=== PATIENT | female | born 1995 | race Caucasian/White ===

== ENCOUNTER 2017-10-24 16:33 | Emergency (ER) | payer BC, SELFPAY ==
[2017-10-24 16:33] VITALS: BP 143/95; PULSE 108; RESP 16; TEMP 37.4; O2SAT 98; BMI 24.7
--- NOTE | 2017-10-24 17:19 | ED.DCSUM_ITS ---
- ER Visit Summary Date of Service: 10/24/17 Chief Complaint: Left foot burn History of Present Illness: The patient is a 22 F who presents with a burn to the left foot. She spilled hot water on the top of her left foot through her shoe and sustained a burn to the top of the foot. She claims of mild pain only while wearing tennis shoes. She is uncertain of his last tetanus immunization. She presented here for evaluation to make sure it was not infected. She really has no other complaints. Physical Examination: Afebrile vitals are stable There is a partial-thickness burn to the dorsum of the left foot which measures 4 x 2 cm this appears to be a blistered area which had ruptured there is no surrounding erythema consistent with cellulitis there is no lymphangitic streaking there is no surrounding tenderness she is neurovascularly intact distally with brisk capillary refill normal sensation light touch Test Results: Not indicated Emergency Department Course and Treatment: Patient's tetanus was updated and she was instructed on local wound care. She will follow-up as an outpatient as needed. She understands return for new or worsening symptoms. I do not see evidence of infection and do not believe she needs antibiotics. Treatment Plan: [] Disposition: Discharge Impression: Partial-thickness burn of the left foot, less than 1% body surface area This note was generated with [employer] dictation software. It may contain incorrect words, spelling, and punctuation that were not noted in review of the chart prior to signing ED Disposition - Plan for ED Patient: Chief Complaint: Wound Check Referrals: Care Physician,No Primary [Primary Care Provider] -
--- NOTE | 2017-10-24 17:19 | ED.DEP ---
ED Disposition - Plan for ED Patient: Chief Complaint: Wound Check Instructions: ED Burn Wound Check No Infec Referrals: Care Physician,No Primary [Primary Care Provider] -
[2017-10-24] MEDS: Diphth,Pertuss(Acell),Tet Vac 0.5 ML Vial IM (17:29)
[2017-10-24 17:49] VITALS: PULSE 98; RESP 17; O2SAT 98
== END 2017-10-24 17:55 | disposition home or self-care (01) ==
LOC: ED 17:22
PROVIDERS: Emergency Provider Emergency Medicine
DX: T25.022A Burn of unspecified degree of left foot, initial encounter (principal); T31.0 Burns involving less than 10% of body surface; Z23 Encounter for immunization; X12.XXXA Contact with other hot fluids, initial encounter; Y93.89 Activity, other specified; Y92.89 Other specified places as the place of occurrence of the external cause; Y99.8 Other external cause status
CPT/HCPCS: 90715; 99282

== ENCOUNTER 2020-03-03 14:33 | Emergency (ER) | payer OTHER, SELFPAY ==
[2020-03-03 14:34] VITALS: BP 135/71; TEMP 36.2; BMI 29.5
--- NOTE | 2020-03-03 15:11 | ED.VISSUMM ---
- ER Visit Summary Date of Service: 03/03/20 Chief Complaint: Ringing in ears History of Present Illness: The patient is a [address] Pérez. She reports that she has ringing in her ears bilaterally. She does complain of muffled hearing. She denies any pain. States has had similar symptoms in the past with cerumen impaction. She is tried using Debrox at home for 3 days without relief. She went to urgent care prior to arrival and they were unable to irrigate her ears. Patient denies any fever, chills, sore throat, cough, or other complaints. Physical Examination: Vitals: Stable. Afebrile. General: Well-nourished and well-developed. Head: Normocephalic atraumatic. HEENT: Cerumen impaction bilaterally. Once this is removed the right TM is visualized and it is normal. Left TM is visualized and it does have a serous effusion. No evidence of a purulent otitis media. Neck: Supple, no lymphadenopathy. No JVD. Nontender. Cardiovascular: Regular rate and rhythm. No murmurs. Respiratory: No respiratory distress. Clear to auscultation bilaterally. Abdominal: Soft, nontender, nondistended, normal bowel sounds. No guarding, rebound, or peritoneal signs. Back: Nontender. Extremities: Nontender, no edema. Skin: Normal color, no rash. Neurologic: Alert and oriented ?3. Cranial nerves II through XII are intact. Normal strength and sensation. Psych: Normal affect. Emergency Department Course and Treatment: I irrigated the patient's ears myself. A large amount of wax return from both. There was a small amount of blood from both sides. To prevent otitis externa she was placed on Cortisporin otic. And a 1st dose was placed in the emergency department. Treatment Plan: Patient will be discharged with instructions to continue the Debrox. Use the Cortisporin otic to prevent noticed otitis externa. Follow-up with Dr. Teresa in 1 week if not improving. Return to the emergency department for any worsening symptoms. Disposition: To home in improved and stable condition. Impression: 1. Cerumen impaction bilaterally. This note was generated with [employer] dictation software. It may contain incorrect words, spelling, and punctuation that were not noted in review of the chart prior to signing ED Disposition - Plan for ED Patient: Instructions: ED Earwax Removal Referrals: Ulises Teresa MD [STAFF PHYSICIAN] - 1 Week if not improving
[2020-03-03] MEDS: Neomycin Sulfate/Polymyxin/Hc Susp 10 ML Bottle 4 DRP OTIC (15:50)
[2020-03-03 16:04] VITALS: PULSE 87; RESP 16; O2SAT 97
== END 2020-03-03 16:11 | disposition home or self-care (01) ==
LOC: ED 15:20
PROVIDERS: Emergency Provider Emergency Medicine; PCP Family Medicine
DX: H61.23 Impacted cerumen, bilateral (principal)
CPT/HCPCS: 69209; 99282

== ENCOUNTER 2021-01-03 13:20 | Emergency (ER) | payer SELFPAY ==
[2021-01-03 13:21] VITALS: BP 125/82; PULSE 96; RESP 16; TEMP 36.4; O2SAT 100; BMI 25.7
--- NOTE | 2021-01-03 13:27 | CT_ITS ---
STUDY: CT BRAIN WITHOUT CONTRAST REASON FOR EXAM: Female, 25 years old. FELL AND HIT HEAD ON PORCH RAIL, NO LOC, STRUCK HEAD ON RT SIDE, N/V, BEAL RADIATION DOSAGE (If Supplied By Facility): CTDIvol = ( 44.99 ) mGy, DLP = ( 779.24 ) mGycm TECHNIQUE: Transaxial CT imaging of the brain was performed without administration of intravenous contrast material. Individualized dose optimization techniques were used for this CT. COMPARISON: No relevant priors. FINDINGS: Normal soft tissue structures. Normal calvarium. Normal size ventricles and extra-axial spaces for the patient''s age. Normal white matter tracts of the cerebral hemispheres. Normal basal ganglia and thalami. Normal brainstem. Normal cerebellum. There is no intracranial hemorrhage. There are no findings of an acute ischemic infarction. Normal visualized paranasal sinuses. CT/Brain/Head without Contrast IMPRESSION: No acute intracranial hemorrhage or mass effect. Electronically Signed: Won Bob MD ([place]) at 14:31 EST , Service support ,
--- NOTE | 2021-01-03 13:29 | EDS_ITS ---
HPI History of Present Illness Chief Complaint: Head Injury Informant: patient Narrative Narrative: 25-year-old female was exiting her residence when she slipped on the wet porch striking the right temporal side of her head on the railing. No loss of consciousness but the patient states she has had vomiting and continued nausea. No seizure activity. She denies any arm or leg symptoms. No back complaints. She is not on any blood thinners. [facility] Home Medications NK 10/24/17 [History Last Taken Unknown] Allergy/AdvReac Type Severity Reaction Status Date / Time No Known Allergies Allergy Verified 03/03/20 14:34 Social History (Updated 01/03/21 @ 13:[address] Abdulaziz Raygoza, DO) Smoking Status: Never smoker substance use type: does not use ROS ROS ED Constitutional Constitutional ED: Denies chills or weight loss Eyes Eyes: Denies change in vision or diplopia ENT ENT ED: Denies ear pain, rhinorrhea or sore throat Cardiovascular Cardiovascular: Denies chest pain, orthopnea, palpitations or racing heartbeat Respiratory/Chest Respiratory/Chest: Denies cough, dyspnea or orthopnea Gastrointestinal Gastrointestinal: Reports nausea and vomiting; Denies abdominal pain or diarrhea Genitourinary Genitourinary ED: Denies dysuria, hematuria or urinary frequency Musculoskeletal Musculoskeletal: Denies arthralgias or myalgias Integumentary Denies abscess or rash Neurologic Neurologic: Reports headache(s); Denies paresthesias or weakness Psychiatric Psychiatric: Denies anxiety, depression, suicidal ideation or suicidal thoughts Endocrine Endocrinology: Denies polydipsia, polyphagia or polyuria Allergic/Immunologic Allergic/Immunologic ED: Denies mouth swelling, tongue swelling or urticaria EXAM Physical Exam Const Vital Signs: 01/03/21 13:21 01/03/21 13:36 Temperature 97.5 F L Temperature Source Temporal Pulse Rate 96 Respiratory Rate 16 Respiratory Effort Normal Non-Labored Blood Pressure 125/82 H Blood Pressure Mean 96 Pulse Ox 100 Oxygen Delivery Method Room Air Positive well nourished and well developed General Appearance ED: well developed HEENT Reports normocephalic, head/scalp atraumatic, TM's clear and moist mucous membranes Negative for trauma Tympanic Membrane ED: Yes TM's clear Eyes PERRL and EOMs intact bilaterally Neck no lymphadenopathy, supple and no JVD Resp normal respiratory effort and clear to auscultation bilaterally Cardio regular rate, regular rhythm and no murmurs GI normal to inspection, nondistended, normoactive bowel sounds and non-tender Palpation: soft Back/Spine no CVA tenderness and normal ROM Extremity normal to inspection General Extremety ED: Negative for edema General Extremity: Negative for edema Neuro oriented x3 and CN's II-XII intact bilaterally Sensorium / Orientation: alert Motor Exam: strength 5/5 throughout Psych mental status grossly normal Mood & Affect: Negative for depressed or tearful Skin no rashes or lesions noted and no wounds MDM MDM MDM Narrative Medical decision making narrative: CT of the brain was obtained and was negative for fracture or intracranial hemorrhage. Patient received a dose of Zofran. She will be discharged home with supportive care return if worsening or concerns Discharge Plan Triage Chief Complaint: Head Injury ED Provider: Abdulaziz Raygoza Dx/Rx/DC Orders Clinical Impression: Head injury, Nausea & vomiting Instructions: ED Head Injury (Adult) Prescriptions: No Action NK RF: 0 Primary Care Provider: Tu Pérez Referrals: Tu Pérez MD [Primary Care Provider] - As Needed Disposition Disposition: Home, Self Care
[2021-01-03] MEDS: Ondansetron ODT 4 MG Tablet PO (13:34)
[2021-01-03 14:39] VITALS: PULSE 94; RESP 17; O2SAT 97
== END 2021-01-03 14:43 | disposition home or self-care (01) ==
LOC: ED 13:55
PROVIDERS: Emergency Provider Emergency Medicine; PCP Family Medicine
DX: S09.90XA Unspecified injury of head, initial encounter (principal); R11.2 Nausea with vomiting, unspecified; W01.0XXA Fall on same level from slipping, tripping and stumbling without subsequent striking against object, initial encounter; Y93.01 Activity, walking, marching and hiking; Y92.008 Other place in unspecified non-institutional (private) residence as the place of occurrence of the external cause; Y99.8 Other external cause status
CPT/HCPCS: 70450; 99283